=== PATIENT | male | born 1960 | race Caucasian/White ===

== ENCOUNTER 2018-08-15 14:07 | Emergency (ER) | payer MEDICAID ==
[~2018-08-15] VITALS: Ht 157.5 cm; Wt 77.1 kg
[2018-08-15 14:10] VITALS: BP 143/76
--- NOTE | 2018-08-15 14:16 | NUR ---
BIB SELF. AAO X4 C/O LEFT FLANK PAIN, MILD BURNING SENSATION UPON URINATION X YESTERDAY. PT DENIES FEVER, SOB, N/V/D, TRAUMA/INJURY. PT STEADY GAIT. ER TO EVALUATE PT.
--- NOTE | 2018-08-15 14:16 | NUR ---
pt ambulated to er bed 07
[2018-08-15] MEDS ORDERED: KETOROLAC 15 MG/ML VIAL IVP ONE ×2 (14:25)
[2018-08-15] MEDS ORDERED: NACL 0.9% 1,000 ML IV SCH (14:25)
--- NOTE | 2018-08-15 14:30 | NUR ---
PT TO RADIOLOGY VIA
[2018-08-15 15:15] LABS: BASOPHILS % (AUTO) 0.5 % (0.0-2.0); EOSINOPHILS # (AUTO) 0.1 K/uL (0-0.4); EOSINOPHILS % (AUTO) 1.2 % (0.0-4.0); HEMATOCRIT 41.4 % (36-52); HEMOGLOBIN 14.2 g/dL (12.0-18.0); LYMPHOCYTES # (AUTO) 1.5 K/uL (2.0-11.5); MEAN CORPUSCULAR HEMOGLOBIN 31 pg (27-31); MEAN CORPUSCULAR HGB CONC 34 g/dL (33-37); MEAN CORPUSCULAR VOLUME 89.3 fL (80-94); MONOCYTES # (AUTO) 0.7 K/uL (0.8-1.0); MONOCYTES % (AUTO) 9.2 % (1.7-9.3); NEUTROPHILS # (AUTO) 5.3 K/uL (1.8-7.7); NEUTROPHILS % (AUTO) 69.1 % (42.2-75.2); PLATELET COUNT (AUTO) 241 K/uL (140-450); RED BLOOD CELL COUNT(AUTO) 4.63 MIL/uL (4.20-6.10); RED CELL DISTRIBUTION WIDTH 12.8 % (11.6-13.7); WHITE BLOOD COUNT (AUTO) 7.6 K/uL (4.8-10.8)
[2018-08-15 15:22] LABS: ANION GAP 11.7 (8-16); CARBON DIOXIDE 27.3 mmol/L (21-32)
[2018-08-15 15:25] LABS: APPEARANCE,URINE CLEAR (CLEAR); BILIRUBIN,URINE NEGATIVE (NEGATIVE); BLOOD, URINE TRACE-I (NEGATIVE); COLOR,URINE YELLOW (YELLOW); LEUKOCYTE ESTERASE ,URINE NEGATIVE (NEGATIVE); NITRITE, URINE NEGATIVE (NEGATIVE); PH,URINE 6.5 (5.0-9.0); UGLUCOSE 3+ (NEGATIVE)
[2018-08-15 15:28] LABS: ALBUMIN 3.1 g/dL (3.4-5.0); TOTAL BILIRUBIN 0.4 mg/dL (0.0-1.0)
--- NOTE | 2018-08-15 15:38 | NUR ---
DR. CHAPMAN BEDSIDE EVALUATING PT
--- NOTE | 2018-08-15 15:38 | NUR ---
DR CHAPMAN AT BEDSIDE FOR PT RE EVALUATION
[2018-08-15 15:39] LABS: RBC,URINE 0-5 /HPF (0-5); WBC,URINE 0-5 /HPF (0-5)
[2018-08-15 16:10] VITALS: BP 135/74
--- NOTE | 2018-08-15 16:10 | NUR ---
Patient discharged with v/s stable. Written and verbal after care instructions given and explained. Patient alert, oriented and verbalized understanding of instructions. Ambulatory with steady gait. All questions addressed prior to discharge. ID band removed. Patient advised to follow up with PMD. Rx of Glyburide, Ibuprofen, Metformin Hydrochloride, [place] 5-325 mg given. Patient educated on indication of medication including possible reaction and side effects. Opportunity to ask questions provided and answered.
== END 2018-08-15 16:10 | disposition home or self-care (01) ==
LOC: MED 14:07
DX: S23.41XA Sprain of ribs, initial encounter (principal); E11.65 Type 2 diabetes mellitus with hyperglycemia; Z76.0 Encounter for issue of repeat prescription; W19.XXXA Unspecified fall, initial encounter; Y93.89 Activity, other specified; Y92.89 Other specified places as the place of occurrence of the external cause; Y99.8 Other external cause status
CPT/HCPCS: 36415; 74176; 80053; 81001; 82948; 83690; 85025; 96361; 96374; 96375; 99284; J1885; Q0092; J7030